=== PATIENT | female | born 1985 | race Caucasian/White ===

== ENCOUNTER 2025-05-06 15:39 | Emergency (ER) | payer OTHER ==
[2025-05-06 15:50] VITALS: TEMP 98.2; BMI 23.9
[2025-05-06 16:49] LABS: ABSOLUTE IMMATURE GRANULOCYTES 0.01 x10^3/uL (0.0-0.031); BASOPHILS # 0.06 x10^3/uL (0.01-0.08); EOSINOPHIL % 4.8 % (0.7-5.8); EOSINOPHILS # 0.26 x10^3/uL (0.04-0.36); MCHC 33.1 g/dl (32.2-35.5); MEAN CELL VOLUME 86.7 fl (79.4-94.8); MEAN PLT VOLUME 11.7 fl (9.4-12.3); MONOCYTE # 0.51 x10^3/uL (0.24-0.86); MONOCYTE % 9.4 % (4.7-12.5); RDW 14.1 % (12.1-16.8)
[2025-05-06 16:56] LABS: INR 1.0 (0.83-1.09); PROTHROMBIN TIME (PATIENT) 11.0 SEC (9.7-13.0)
[2025-05-06 16:59] LABS: ACTIVATED PTT 31.0 SECONDS (25.2-36.5)
[2025-05-06] MEDS ORDERED: ACETAMINOPHEN INJECTION 100 ML ONE (17:10)
[2025-05-06] MEDS: ACETAMINOPHEN 1000 MG/100 ML BAG IVPB ONE (17:16)
[2025-05-06 17:21] LABS: GLUCOSE,RANDOM 113.0 mg/dL (74-106)
[2025-05-06 17:22] LABS: TOT PROT 8.1 g/dl (6.4-8.2)
[2025-05-06 17:23] LABS: CO2 19.0 mmol/L (21-32)
[2025-05-06 17:24] LABS: ALK PHOS 218.0 U/L (40-150)
[2025-05-06 17:27] LABS: SGOT/AST 108.0 U/L (5-34); SGPT/ALT 133.0 U/L (0-55)
[2025-05-06 17:28] LABS: CREATININE 0.74 mg/dL (0.55-1.3)
[2025-05-06 17:48] LABS: HCV DIAGNOSTIC IN-HOUSE W/RFLX NON-REACTIVE (NONREACTIVE); HIV INTERPRETATION NEGATIVE (NEGATIVE)
[2025-05-06 20:04] VITALS: RESP 16
[2025-05-06 20:16] VITALS: BP 121/75; PULSE 76
== END 2025-05-06 21:08 | disposition home or self-care (01) ==
LOC: JER 15:39
PROC: 3E033NZ Introduction of Analgesics, Hypnotics, Sedatives into Peripheral Vein, Percutaneous Approach (ICD-10-PCS; principal; 2025-05-06)
DX: R07.89 Other chest pain (principal); R06.02 Shortness of breath; R20.0 Anesthesia of skin; R20.2 Paresthesia of skin
CPT/HCPCS: 36415; 71045-TC-FY; 71275-TC; 80053; 83735; 84100; 84443; 84484; 84702; 85025; 85610; 85730; 86803; 87389; 93005; 93010; 99285-25; Q9967